=== PATIENT | male | born 1990 | race African-American/Black ===

== ENCOUNTER 2017-01-30 01:03 | Emergency (ER) | payer SELFPAY ==
[2017-01-30] VITALS (7 sets, daily range): BP systolic 125–163; BP diastolic 66–94
[~2017-01-30] VITALS: Ht 175.3 cm; Wt 72.6 kg
[2017-01-30] MEDS ORDERED: UNOBMED (01:16)
--- NOTE | 2017-01-30 02:34 | Emergency Room Report ---
History of Present Illness General Chief Complaint: Behavioral Complaint Source: Patient, Family Member Present Illness HPI Is a 26-year-old male with a history of bipolar. According to his mom he has a history of one psychiatric admission in the past. He's been living in [place] and recently moved back to the [place] area. He's been in and out of the house for the last 2 to 3 weeks. He's been acting erratically. He stopped taking his medication. He appear to be agitated and delusional sometime. She was concerned and she called 911. On arrival police found him outside grabbing onto a pole. 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 He was expressing wanting to hurt himself. They put him on a 5150 psychiatric hold. Here patient is calm. He said that he does have taking some bed marijuana. Denies suicidal thoughts or homicidal thought. Allergies: Coded Allergies: UNABLE TO ASSESS (Unverified , 01/30/17) Patient History Past Medical History: see triage record, old chart reviewed, psych hx Past Surgical History: other Family History: none Social History: tobacco use, drug use Immunizations: other Reviewed Nursing Documentation: PMH: Agreed, PSxH: Agreed Nursing Documentation-PMH Past Medical History Deferred: Pt Cognitively Impaired Review of Systems ENT: Denies: sore throat Cardiovascular: Denies: chest pain, palpitations Gastrointestinal/Abdominal: Denies: nausea, vomiting, diarrhea Musculoskeletal: Denies: back problems Skin: Denies: rash Neurological: Denies: RODRIGUEZ, seizures All Other Systems: negative except mentioned in HPI Physical Exam Vital Signs Date Time Temp Pulse Resp B/P (MAP) Pulse Ox O2 Delivery O2 Flow Rate FiO2 01/30/17 01:10 98.4 88 16 138/78 99 Room Air vitals normal Sp02 EP Interpretation: reviewed, normal General Appearance: alert/responsive, no apparent distress, non-toxic Head: normocephalic, atraumatic Eyes: PERRL, EOMI ENT: oropharynx normal Neck: supple/symm/no masses Respiratory: effort normal, no rhonchi, no wheezing Cardiovascular: no murmur, gallop, rub Gastrointestinal: non-tender, no mass, non-distended, no rebound/guarding, normal bowel sounds Musculoskeletal: gait & station normal Neurologic: oriented x3, sensory intact, motor strength/tone normal Skin: no rash, normal palpation Medical Decision Making Diagnostic Impression: Primary Impression: Psychosis Qualified Codes: F23 - Brief psychotic disorder Additional Impressions: Behavioral disorder Leukocytosis Qualified Codes: D72.829 - Elevated white blood cell count, unspecified ER Course Patient presents with agitation and questionable psychosis. Probably secondary to drug to noncompliance. He seemed to be calm now. He came in restraints and those were removed since he was calm. He is medically clear and will get psychiatric evaluation. I also spoke with mom we'll confirmed these findings. Patient with a leukocytosis. Most likely secondary to drug induced from methamphetamine. there is no evidence of infection. Patient given IV fluid and will repeat CBC. I will sign this patient out to Dr. Wong for final disposition. Lab Results Impression labs with leukocytosis Last Vital Signs Date Time Temp Pulse Resp B/P (MAP) Pulse Ox O2 Delivery O2 Flow Rate FiO2 01/30/17 01:10 98.4 88 16 138/78 99 Room Air Status: improved Disposition: XFER TO PSYCH HOSP/UNIT Condition: Stable GEORGE CHACON M.D. Jan 30, 2017 02:34
[2017-01-30 03:20] LABS: MEAN CORPUSCULAR HEMOGLOBIN 32.9 PG (27.0-31.0); MEAN CORPUSCULAR HGB CONC 34.2 G/DL (32.0-36.0); MEAN CORPUSCULAR VOLUME 96 FL (80-99); MEAN PLATELET VOLUME 7.2 FL (6.5-10.1); PLATELET COUNT 362 K/UL (150-450); RED BLOOD COUNT 5.14 M/UL (4.70-6.10); RED CELL DISTRIBUTION WIDTH 11.2 % (11.6-14.8)
[2017-01-30 03:26] LABS: WHITE BLOOD COUNT 26.7 K/UL (4.8-10.8)
[2017-01-30 03:37] LABS: ACETAMINOPHEN < 10 ug/mL (10-30); ALANINE AMINOTRANSFERASE 29 U/L (3-41); ALBUMIN/GLOBULIN RATIO 1.6 (1.0-2.7); ALCOHOL < 10 mg/dL; ANION GAP 18 (5-15); ASPARTATE AMINO TRANSFERASE 124 U/L (5-40); CALCIUM 10.7 mg/dL (8.6-10.2); CARBON DIOXIDE 25 mEQ/L (20-30); CHLORIDE 96 mEQ/L (98-107); CREATININE 1.4 mg/dL (0.7-1.2); GLOMERULAR FILTRATION RATE > 60 mL/min (>60); HEMOLYSIS 6; POTASSIUM 4.5 mEQ/L (3.4-4.9); SODIUM 139 mEQ/L (135-145); TOTAL PROTEIN 9.3 g/dL (6.6-8.7)
[2017-01-30 04:05] LABS: BILIRUBIN,DIRECT 0.3 mg/dL (0.1-0.3)
[2017-01-30 04:21] LABS: APPEARANCE,URINE CLEAR; KETONES,URINE 3+ (NEGATIVE); LEUKOCYTE ESTERASE ,URINE 1+ (NEGATIVE); NITRITE,URINE NEGATIVE (NEGATIVE); PH,URINE 6 (4.5-8.0); PROTEIN,URINE 3+ (NEGATIVE); UROBILINOGEN,URINE 1 MG/DL (0.0-1.0)
[2017-01-30 04:33] LABS: BACTERIA,URINE FEW /HPF; MUCUS,URINE MANY /LPF (NONE/OCC)
[2017-01-30 04:36] LABS: BAND NEUTROPHILS % (MANUAL) 2 % (0-8); BASOPHILS % (MANUAL) 0 % (0-2); EOSINOPHILS % (MANUAL) 0 % (0-3); LYMPHOCYTES % (MANUAL) 10 % (20-45); NEUTROPHILS % (MANUAL) 81 % (45-75); PLATELET ESTIMATE ADEQUATE; PLATELET MORPHOLOGY NORMAL; TOTAL CELLS COUNTED 100
[2017-01-30 07:19] LABS: BASOPHILS % (AUTO) 0.9 % (0.0-2.0); LYMPHOCYTES % (AUTO) 13.6 % (20.0-45.0); MEAN CORPUSCULAR HEMOGLOBIN 34.6 PG (27.0-31.0); MEAN CORPUSCULAR HGB CONC 34.9 G/DL (32.0-36.0); MEAN CORPUSCULAR VOLUME 99 FL (80-99); MONOCYTES % (AUTO) 5.1 % (1.0-10.0); NEUTROPHILS % (AUTO) 80.3 % (45.0-75.0); PLATELET COUNT 272 K/UL (150-450); RED BLOOD COUNT 4.13 M/UL (4.70-6.10); RED CELL DISTRIBUTION WIDTH 11.4 % (11.6-14.8); WHITE BLOOD COUNT 17.2 K/UL (4.8-10.8)
[2017-01-30] MEDS ORDERED: LORazepam Inj 2mg/ml 1ml IM ONE (08:30)
[2017-01-30] MEDS ORDERED: Haloperidol 5mg/ml Inj IM ONE (10:00)
[2017-01-30] MEDS ORDERED: DiphenhydrAMINE 50mg/ml Inj IM ONE (10:00)
[2017-01-30] MEDS ORDERED: LR 1000ml 1,000 ML IV STA (10:08)
[2017-01-30 11:04] LABS: BASOPHILS % (AUTO) 1.1 % (0.0-2.0); EOSINOPHILS % (AUTO) 0.1 % (0.0-3.0); LYMPHOCYTES % (AUTO) 13.3 % (20.0-45.0); MEAN CORPUSCULAR HEMOGLOBIN 32.9 PG (27.0-31.0); MEAN CORPUSCULAR HGB CONC 33.8 G/DL (32.0-36.0); MEAN CORPUSCULAR VOLUME 97 FL (80-99); MEAN PLATELET VOLUME 7.6 FL (6.5-10.1); NEUTROPHILS % (AUTO) 79.5 % (45.0-75.0); PLATELET COUNT 317 K/UL (150-450); RED BLOOD COUNT 4.73 M/UL (4.70-6.10); RED CELL DISTRIBUTION WIDTH 11.1 % (11.6-14.8); WHITE BLOOD COUNT 15.7 K/UL (4.8-10.8)
--- NOTE | 2017-01-30 14:59 | Consultation ---
History of Present Illness General Chief Complaint: Behavioral Complaint Present Illness HPI 26-year-old male with a history of bipolar disorder. per mom he has a history of one psychiatric admission in the past. He's been living in [place] and recently moved back to the [place] area. the pt has been acting erratically the police put him on hold. The pt denied using meth, he takes Adderall. the pt is an [employer] truck driver. the pt is also on SSI. the pt usually takes Riperdal. The pt stated "I'm a pothead." the pt has been cooperative and calm. he does not endorse manic or psychotic sxs. the pt does not endorse si/hi. the pt remained calm and cooperative during the eval he agreed to take risperdal and stated that he already has a psychiatrist that his primary referred him to. the pt did not know the name of the doctor and stated he will make an appointment with him. the pt does not have medical issues, smokes weed only and get adderall script from his primary. the pt doesn't have financial issues. the pt is in a relationship for 8 years and has a son with. He lives with her and his mom/ no legal issues. Allergies: Coded Allergies: UNABLE TO ASSESS (Unverified , 01/30/17) Medication History Miscellaneous Medications Unable to Obtain Medications (Unable To Obtain Meds), (Reported) Patient History History Provided By: Patient, Medical Record, PMD Healthcare decision maker Resuscitation status Advanced Directive on File Past Medical/Surgical History Past Medical/Surgical History: (1) Leukocytosis (2) Psychosis (3) Behavioral disorder Review of Systems Constitutional: Reports: weakness Psychiatric: Reports: no symptoms Physical Exam General Appearance: no apparent distress, alert, thin Neurologic: alert, oriented x 3, responsive, normal mood/affect Last 24 Hour Vital Signs Date Time Temp Pulse Resp B/P (MAP) Pulse Ox O2 Delivery O2 Flow Rate FiO2 01/30/17 11:38 98.7 78 16 125/73 98 Room Air 01/30/17 09:30 98.4 72 16 154/92 100 Room Air 01/30/17 07:19 98.4 70 16 163/94 100 Room Air 01/30/17 04:54 98.3 78 14 147/66 99 Room Air 01/30/17 03:15 98.1 96 18 140/83 97 Room Air 01/30/17 01:20 98.4 16 138/78 99 Room Air 01/30/17 01:10 98.4 88 16 138/78 99 Room Air Intake and Output 01/30/17 01/31/17 19:00 07:00 Intake Total 3000 ml Output Total 600 ml Balance 2400 ml IV Total 3000 ml Output Urine Total 600 ml Laboratory Tests Test 01/30/17 03:10 01/30/17 04:10 01/30/17 05:50 01/30/17 10:20 White Blood Count 26.7 K/UL (4.8-10.8) *H 17.2 K/UL (4.8-10.8) H 15.7 K/UL (4.8-10.8) H Red Blood Count 5.14 M/UL (4.70-6.10) 4.13 M/UL (4.70-6.10) L 4.73 M/UL (4.70-6.10) Hemoglobin 16.9 G/DL (14.2-18.0) 14.3 G/DL (14.2-18.0) 15.6 G/DL (14.2-18.0) Hematocrit 49.5 % (42.0-52.0) 40.9 % (42.0-52.0) L 46.0 % (42.0-52.0) Mean Corpuscular Volume 96 FL (80-99) 99 FL (80-99) 97 FL (80-99) Mean Corpuscular Hemoglobin 32.9 PG (27.0-31.0) H 34.6 PG (27.0-31.0) H 32.9 PG (27.0-31.0) H Mean Corpuscular Hemoglobin Concent 34.2 G/DL (32.0-36.0) 34.9 G/DL (32.0-36.0) 33.8 G/DL (32.0-36.0) Red Cell Distribution Width 11.2 % (11.6-14.8) L 11.4 % (11.6-14.8) L 11.1 % (11.6-14.8) L Platelet Count 362 K/UL (150-450) 272 K/UL (150-450) 317 K/UL (150-450) Mean Platelet Volume 7.2 FL (6.5-10.1) 8.0 FL (6.5-10.1) 7.6 FL (6.5-10.1) Neutrophils (%) (Auto) % (45.0-75.0) 80.3 % (45.0-75.0) H 79.5 % (45.0-75.0) H Lymphocytes (%) (Auto) % (20.0-45.0) 13.6 % (20.0-45.0) L 13.3 % (20.0-45.0) L Monocytes (%) (Auto) % (1.0-10.0) 5.1 % (1.0-10.0) 6.0 % (1.0-10.0) Eosinophils (%) (Auto) % (0.0-3.0) 0.0 % (0.0-3.0) 0.1 % (0.0-3.0) Basophils (%) (Auto) % (0.0-2.0) 0.9 % (0.0-2.0) 1.1 % (0.0-2.0) Differential Total Cells Counted 100 Neutrophils % (Manual) 81 % (45-75) H Lymphocytes % (Manual) 10 % (20-45) L Monocytes % (Manual) 7 % (1-10) Eosinophils % (Manual) 0 % (0-3) Basophils % (Manual) 0 % (0-2) Band Neutrophils 2 % (0-8) Platelet Estimate Adequate Platelet Morphology Normal Red Blood Cell Morphology Normal Sodium Level 139 mEQ/L (135-145) Potassium Level 4.5 mEQ/L (3.4-4.9) Chloride Level 96 mEQ/L (98-107) L Carbon Dioxide Level 25 mEQ/L (20-30) Anion Gap 18 (5-15) H Blood Urea Nitrogen 21 mg/dL (7-23) Creatinine 1.4 mg/dL (0.7-1.2) H Estimat Glomerular Filtration Rate > 60 mL/min (>60) Glucose Level 82 mg/dL (74-106) Calcium Level 10.7 mg/dL (8.6-10.2) H Total Bilirubin 2.2 mg/dL (0.0-1.2) H Direct Bilirubin 0.3 mg/dL (0.1-0.3) Aspartate Amino Transf (AST/SGOT) 124 U/L (5-40) H Alanine Aminotransferase (ALT/SGPT) 29 U/L (3-41) Alkaline Phosphatase 64 U/L (40-129) Total Protein 9.3 g/dL (6.6-8.7) H Albumin 5.8 g/dL (3.5-5.2) H Globulin 3.5 g/dL Albumin/Globulin Ratio 1.6 (1.0-2.7) Salicylates Level < 1 mg/dL (10-30) L Acetaminophen Level < 10 ug/mL (10-30) L Serum Alcohol < 10 mg/dL Urine Color Yellow Urine Appearance Clear Urine pH 6 (4.5-8.0) Urine Specific [place] 1.025 (1.005-1.035) Urine Protein 3+ (NEGATIVE) H Urine Glucose (UA) Negative (NEGATIVE) Urine Ketones 3+ (NEGATIVE) H Urine Occult Blood 1+ (NEGATIVE) H Urine Nitrite Negative (NEGATIVE) Urine Bilirubin Negative (NEGATIVE) Urine Urobilinogen 1 MG/DL (0.0-1.0) H Urine Leukocyte Esterase 1+ (NEGATIVE) H Urine RBC 2-4 /HPF (0 - 0) H Urine WBC 2-4 /HPF (0 - 0) Urine Squamous Epithelial Cells None /LPF (NONE/OCC) Urine Bacteria Few /HPF (NONE) Urine Mucus Many /LPF (NONE/OCC) H Urine Opiates Screen Negative (NEGATIVE) Urine Barbiturates Screen Negative (NEGATIVE) Phencyclidine (PCP) Screen Negative (NEGATIVE) Urine Amphetamines Screen Positive (NEGATIVE) H Urine Benzodiazepines Screen Negative (NEGATIVE) Urine Cocaine Screen Negative (NEGATIVE) Urine Marijuana (THC) Screen Positive (NEGATIVE) H Height (Feet): 5 Height (Inches): 9.00 Weight (Pounds): 160 Assessment/Plan Status: doing well, stable Assessment/Plan bipolar d/o by history -the pt would take risperdal -the pt reluctant to take haldol dec -dc 5150 -the pt does not meet the criteria for psych iplo. -d/w Lalit Tabares M.D. Jan 30, 2017 14:59
[2017-01-30] MEDS ORDERED: RISPERDAL2 MG ORAL (15:03)
== END 2017-01-30 15:18 | disposition home or self-care (01) ==
LOC: EDBD 01:03 → EMR 01:29
DX: F29 Unspecified psychosis not due to a substance or known physiological condition (principal); F91.9 Conduct disorder, unspecified; D72.829 Elevated white blood cell count, unspecified
CPT/HCPCS: 36415; 80053; 80300; 81003; 82248; 85007; 85025; 96361; 96372; 96374; 99285; G0480; J1200; J1630; J7120; 80329